=== PATIENT | female | born 1955 | race African-American/Black ===

== ENCOUNTER → 2019-03-16 | Outpatient (CLI) | payer OTHER ==
--- NOTE | 2019-03-16 13:19 | Pulmonary Function Test ---
Pulmonary Function Test Date of Procedure:: 03/16/19 INDICATION:: Dyspnea Referring Provider: Dr. Daljit Paulson Music Orchestrator: Ava Campa, STATISTICAL MACHINE MECHANIC, WASTE MACHINE OFFBEARER - Report Spirometry: Spirometry: pre-FVC: 2.04 L 71% pre-FEV:1 1.80 L 77% pre-FEV1/FVC % 86 predicted 83 eti-[id number]% 1.95 L 76% Impression: No evidence to sustain a diagnosis of obstructive ventilatory defect. Restrictive defect is implied by the decreased FVC. Restrictive defect cannot be diagnosed on the basis of spirometry alone. Restrictive defect may mask the degree of obstruction. If clinically indicated complete pulmonary function test would be warranted
== END ==
LOC: RT 08:03
DX: J06.9 Acute upper respiratory infection, unspecified (principal); I10 Essential (primary) hypertension; M41.9 Scoliosis, unspecified
CPT/HCPCS: 94010

== ENCOUNTER → 2019-09-24 | Outpatient (CLI) | payer MEDICAID | LOC: OD 08:09 | PROVIDERS: ATTEND Otolaryngology | DX: J30.9 Allergic rhinitis, unspecified (principal) | CPT/HCPCS: 36415; 82785; 86003 ==